=== PATIENT | male | born 1935 | race Caucasian/White ===

== ENCOUNTER 2020-05-05 12:04 | Outpatient (CLI) | payer OTHER | END 2020-05-05 23:59 | disposition home or self-care (01) | LOC: CARD DIAG 12:04 | PROVIDERS: ATTEND Orthopaedic Surgery | DX: I08.0 Rheumatic disorders of both mitral and aortic valves (principal); I25.2 Old myocardial infarction; I25.10 Atherosclerotic heart disease of native coronary artery without angina pectoris | CPT/HCPCS: 93005; 93306 ==